=== PATIENT | female | born 1940 | race Caucasian/White ===

== ENCOUNTER 2023-04-12 10:10 | Outpatient (CLI) | payer OTHER | END 2023-04-12 10:16 | disposition home or self-care (01) | LOC: RAD 10:10 | PROVIDERS: ATTEND Physical Medicine & Rehabilitation | DX: M25.562 Pain in left knee (principal); M54.50 Low back pain, unspecified ==

== ENCOUNTER → 2023-04-18 | Outpatient (CLI) | payer OTHER | END | disposition home or self-care (01) | LOC: NUCLEAR 12:16 | PROVIDERS: ATTEND Physical Medicine & Rehabilitation | DX: I82.402 Acute embolism and thrombosis of unspecified deep veins of left lower extremity (principal) ==